=== PATIENT | male | born 1965 | race Two or more races ===

== ENCOUNTER 2018-08-16 11:55 | Day surgery (SDC) | payer OTHER ==
[2018-08-16] MEDS ORDERED: NEURONTIN300 MG PO (16:27)
[2018-08-16] MEDS ORDERED: ZOFRAN ODT4 MG PO (16:27)
[2018-08-16] MEDS ORDERED: PERCOCET 5-3251 EACH PO (16:27)
[2018-08-16] MEDS ORDERED: MIRALAX17 GM PO (16:27)
== END 2018-08-16 17:55 | disposition home or self-care (01) ==
LOC: CIR.AMB 11:55
DX: K42.9 Umbilical hernia without obstruction or gangrene (principal); K40.91 Unilateral inguinal hernia, without obstruction or gangrene, recurrent